=== PATIENT | male | born 1945 | race Caucasian/White ===

== ENCOUNTER 2016-06-16 07:44 | Inpatient (IN) | payer MEDICARE, BC ==
[~2016-06-16 07:44] MED LIST: BUDESONIDE 0.5 MG/2 ML VIAL.NEB IH ONE; IPRATROPIUM BROMIDE 0.5 MG/2.5 ML VIAL.NEB IH ONE; MORPHINE SULFATE 15 MG TABLET.SA PO PRN; ROPIVACAINE HCL/PF 100 MG, KETOROLAC TROMETHAMINE 30 MG, EPINEPHrine 0.2 MG in NORMAL S... IJ PRN; ceFAZolin SODIUM 1 GM VIAL IV PRN
--- OUTSIDE RECORDS SUMMARY | 2016-06-16 07:49 | XMS REPORT | Continuity of Care Document ---
:1945 Author Organization [facility] ([facility]) Address [address] [place] [address] Phone [phone] Care Team Providers Name Role Phone Provider, No-Primary Care Primary Care Provider Unavailable Source Comments This disclosure is being made pursuant to the Care Everywhere program, applicable federal and state laws, and may not contain all informaitonavailable regarding this patient.[facility] ([facility]) Active Allergies and Adverse Reactions Not on File Current Medications Not on file Active Problems Not on file Social History Tobacco Use Types Packs/Day Years Used Date Never Assessed Plan of Care Health Maintenance Due Date Last Done Comments HCV Screening 1945 Hepatitis B Vaccine (1 of 3 - Primary Series) 1945 Tdap Vaccine 1958 Lipid Disorder Screening 1965 Td Vaccine 1965 Colonoscopy 02/21/1997 Prostate Cancer Screening 1997 Zoster Vaccine 2007 Pneumococcal Vaccine (1 of 2 - PCV13) 02/23/2012 Influenza Vaccine: Seasonal (#1) 09/24/2015 Results from Last 3 Months Not on file
[2016-06-16] MEDS: RINGERS SOLUTION,LACTATED 1,000 ML IV PRN ×2 (08:10→19:32)
[2016-06-16] MEDS ORDERED: RINGERS SOLUTION,LACTATED 850 ML IV ONE (10:20)
[2016-06-16] MEDS ORDERED: RINGERS SOLUTION,LACTATED 1,000 ML IV ONE (11:15)
[2016-06-16] MEDS ORDERED: PROMETHAZINE HCL 5 MG in DEXTROSE 5 % IN WATER 50 ML IV PRN ×2 (11:47)
[2016-06-16] MEDS ORDERED: MAGNESIUM HYDROXIDE 30 ML UDC PO PRN (11:47)
[2016-06-16] MEDS ORDERED: ONDANSETRON HCL/PF 2 MG/ML VIAL IV PRN (11:47)
[2016-06-16] MEDS ORDERED: HYDROmorphone HCL 1 MG/ML DISP.SYRIN IV PRN (11:47)
[2016-06-16] MEDS ORDERED: ACETAMINOPHEN 500 MG TABLET PO PRN (11:47)
[2016-06-16] MEDS ORDERED: ZOLPIDEM TARTRATE 5 MG TABLET PO PRN (11:47)
[2016-06-16] MEDS ORDERED: diphenhydrAMINE HCL 50 MG/ML VIAL IV PRN (11:47)
[2016-06-16] MEDS ORDERED: oxyCODONE HCL/ACETAMINOPHEN 1 TAB TABLET PO PRN (11:47)
[2016-06-16] MEDS ORDERED: DEXTROSE 5%-LACTATED RINGERS 1,000 ML IV PRN (11:47)
[2016-06-16] MEDS ORDERED: MAG HYDROX/ALUMINUM HYD/SIMETH 30 ML UDC PO PRN (11:47)
[2016-06-16] MEDS ORDERED: LOPERAMIDE HCL 2 MG CAPSULE PO PRN (11:49)
[2016-06-16] MEDS: KETOROLAC TROMETHAMINE 15 MG/ML VIAL IV SCH ×2 (13:50→19:29)
[2016-06-16] MEDS: ceFAZolin SODIUM 1 GM in DEXTROSE 5 % IN WATER 100 ML IV SCH ×4 (13:50→19:29)
[2016-06-16] MEDS ORDERED: SENNOSIDES/DOCUSATE SODIUM 1 TAB TABLET PO SCH (21:00)
[2016-06-16] MEDS ORDERED: ASPIRIN 325 MG TABLET.DR PO SCH (21:00)
[2016-06-17] MEDS: ceFAZolin SODIUM 1 GM in DEXTROSE 5 % IN WATER 100 ML IV SCH ×2 (01:53)
[2016-06-17] MEDS: KETOROLAC TROMETHAMINE 15 MG/ML VIAL IV SCH ×2 (01:54→07:14)
[2016-06-17 03:58] VITALS: BP 133/76
[2016-06-17 06:02] LABS: Hematocrit 38.1 % (42.0-52.0); Hemoglobin 13.1 gm/dL (13.5-18.0); Mean Cell Volume 94.1 fl (78-100); Mean Corpuscular Hemoglobin 32.3 pg (27-31); Mean Corpuscular Hgb Conc 34.4 g/dl (32-36); Mean Platelet Volume 9.1 fl (6.0-9.5); Platelet Count 145 K/mm3 (150-450); Red Blood Count 4.05 M/mm3 (4.7-6.0); Red Cell Distribution Width 11.7 % (11.5-14.0); White Blood Count 7.5 K/mm3 (4.0-10.5)
[2016-06-17 06:29] LABS: Anion Gap 10.1 mmol/L (6.8-13.8); Calcium * 8.5 mg/dL (7.9-10.9); Carbon Dioxide 29.2 mmol/L (24-32.6); Estimated Creat Clear 69.4; Potassium 4.3 mmol/L (3.4-4.6)
[2016-06-17] MEDS ORDERED: PANTOPRAZOLE SODIUM 20 MG TABLET.DR PO SCH (07:00)
--- NOTE | 2016-06-17 08:03 | DS ---
(1) S/P revision of total knee Problem: Acute Qualifiers: Laterality: right Qualified Code(s): Z96.651 - Presence of right artificial knee joint (2) GERD (gastroesophageal reflux disease) Problem: Chronic (3) Anxiety Problem: Chronic (4) Depression Problem: Chronic (5) Hypertension Problem: Chronic (6) Osteoarthritis Problem: Chronic Description of Stay: Mr. Lua was admitted to the floor after undergoing revision of polyethylene of right total knee arthroplasty. Tolerated this well. Was admitted to the floor postoperatively for 24 hours of IV antibiotics, pain control, medical comanagement, and occupational and physical therapy. OT and PT were consulted to assist with activities of daily living and ambulation. Was made weightbearing as tolerated with range of motion as tolerated. Pain was initially controlled with IV regimen. This was transitioned to oral once tolerating a by mouth intake. Was resumed on home diet and medications. Had a Smith catheter inserted and the operating room which was discontinued on postoperative day 1. Aspirin, SCD and DACIA hose were utilized for DVT prophylaxis. Vital signs remained stable to the hospital course. Labs were obtained which showed a final hemoglobin of 13.1 grams. BMP was reviewed and was stable. Physical examination throughout the hospital course showed an extremity that had sensation that was intact to light touch, palpable pulses, a benign wound, motor intact to the toes, ankle, and knee. Knee range of motion was approximately 0 degrees to 80 degrees. Once an oral pain regimen was tolerated and physical therapy goals were met, it was felt that they were stable for discharge to home. Instructions: Continue with weightbearing as tolerated and range of motion as tolerated. Okay to shower, if there is any drainage cover with dry gauze and tape. Change every 2-3 days as needed. Resume home diet. Report any fever over 101.5 Fahrenheit, uncontrolled pain, increased drainage, foul odor of drainage, new or increased calf pain or shortness of breath, or any other significant complaints. A 325mg dialy aspirin for DVT prophylaxis. Continue with DACIA hose on the operative extremity until instructed otherwise. No driving until instructed otherwise. Follow up in approximately 10-14 days. Procedures Performed: see notes below List Procedures: Revision of polyethelene right total knee arthroplasty Discharge Disposition: Home self care Disposition: Home self-care Condition: Good Discharge Activity: Activity as tolerated, Weight bearing Discharge Diet: General/regular food Referrals: Kitty Ernandez DO [Primary Care Provider] - Additional Patient Instructions (free text): Follow-up in the office with Dr. Gastelum on 07/01/16@9:45am. Prescriptions (Any new or edited meds): Sennosides/Docusate Sodium [Senokot-S] 2 tab PO HS #60 tablet oxyCODONE HCL/ACETAMINOPHEN [Percocet 5 MG/325 MG] 2 tab PO Q4H PRN #60 tablet PRN Reason: Moderate Pain Complete Home Medications List: Complete Home Medication List: Cetirizine HCl [Zyrtec] 10 mg PO DAILY 10/31/15 Loperamide HCl [Imodium] 2 mg PO PRN PRN 10/31/15 Naproxen Sodium [Aleve] 220 - 440 mg PO BID PRN 10/31/15 Omeprazole [Prilosec] 20 mg PO DAILY 10/31/15 Sertraline HCl [Zoloft] 100 mg PO DAILY 10/31/15 Lisinopril [Zestril] 30 mg PO DAILY 06/09/16 Rosuvastatin Calcium [Crestor] 20 mg PO DAILY 06/09/16 Aspirin [Aspirin Enteric Coated] 325 mg PO BID tablet. 06/17/16 Sennosides/Docusate Sodium [Senokot-S] 2 tab PO HS #60 tablet 06/17/16 oxyCODONE HCL/ACETAMINOPHEN [Percocet 5 MG/325 MG] 2 tab PO Q4H PRN #60 tablet 06/17/16
[2016-06-17] MEDS ORDERED: ROSUVASTATIN CALCIUM 10 MG TABLET PO SCH (09:00)
[2016-06-17] MEDS ORDERED: LISINOPRIL 10 MG TABLET PO SCH (09:00)
[2016-06-17] MEDS ORDERED: LORATADINE 10 MG TABLET PO SCH (09:00)
[2016-06-17] MEDS ORDERED: SERTRALINE HCL 100 MG TABLET PO SCH (09:00)
== END 2016-06-17 10:10 | disposition home or self-care (01) | DRG 489 ==
LOC: MS 07:44
PROVIDERS: ADMIT Orthopaedic Surgery; ATTEND Orthopaedic Surgery
PROC: 0SUV09Z Supplement Right Knee Joint, Tibial Surface with Liner, Open Approach (ICD-10-PCS; 2016-06-16)
PROC: 0SPC09Z Removal of Liner from Right Knee Joint, Open Approach (ICD-10-PCS; principal; 2016-06-16 11:30)
DX: T84.022A Instability of internal right knee prosthesis, initial encounter (principal); I10 Essential (primary) hypertension; E78.5 Hyperlipidemia, unspecified; K21.9 Gastro-esophageal reflux disease without esophagitis

== ENCOUNTER 2018-12-20 06:12 | Inpatient (IN) ==
[~2018-12-20 06:12] MED LIST changes: -BUDESONIDE 0.5 MG/2 ML VIAL.NEB IH ONE; -IPRATROPIUM BROMIDE 0.5 MG/2.5 ML VIAL.NEB IH ONE; +ROPIVACAINE HCL/PF 100 MG, EPINEPHrine 0.2 MG, KETOROLAC TROMETHAMINE 30 MG in NORMAL S... IJ PRN; -ROPIVACAINE HCL/PF 100 MG, KETOROLAC TROMETHAMINE 30 MG, EPINEPHrine 0.2 MG in NORMAL S... IJ PRN; +TRANEXAMIC ACID 1,000 MG in NORMAL SALINE 100 ML IV PRN
[2018-12-20] MEDS ORDERED: ISOPROPYL ALCOHOL 480 APPL BTL MC ONE (06:28)
[2018-12-20] MEDS: RINGER'S SOLUTION,LACTATED 1,000 ML IV PRN ×2 (07:02→09:29)
--- NOTE | 2018-12-20 07:16 | ANES ---
Anesthesia Pre Procedure Eval Vitals/Labs: Last Vital Signs Temp 36.4 C 12/20/18 06:43 Pulse 77 12/20/18 06:43 Resp 16 12/20/18 06:43 BP 124/71 12/20/18 06:43 Pulse Ox 98 12/20/18 06:43 HOME MEDICATIONS lisinopril 40 mg tablet 40 mg PO DAILY 12/08/17 [Last Taken 12/20/18] omeprazole 20 mg capsule,delayed release 20 mg PO DAILY 12/08/17 [Last Taken 12/19/18] amlodipine 5 mg tablet 5 mg PO DAILY 03/25/18 [Last Taken 12/20/18] cetirizine 10 mg capsule 10 mg PO DAILY cap 03/25/18 [Last Taken 12/19/18] ropinirole 0.5 mg tablet 0.5 mg PO DAILY #81 tab 03/25/18 [Last Taken 12/19/18] rosuvastatin 20 mg tablet 20 mg PO DAILY 03/25/18 [Last Taken 12/19/18] temazepam 30 mg capsule 30 mg PO HS PRN #30 cap 11/09/18 [Last Taken 12/19/18] Allergies/Adverse Reactions: Allergies Allergy/AdvReac Type Severity Reaction Status Date / Time No Known Allergies Allergy Verified 12/20/18 06:40 - Planned Procedure Planned Procedure: Left Total Knee Arthroplasty Medication List Reviewed:: Yes Allergies Verified: Yes Medical History (Last Reviewed 12/20/18 @ 07:14 by Eduardo Grissom CRNA) Anxiety Onset Date: Unknown Depression Onset Date: Unknown GERD (gastroesophageal reflux disease) Onset Date: Unknown Hypertension Onset Date: Unknown Knee pain, bilateral Onset Date: Unknown Osteoarthritis Onset Date: Unknown Right ankle pain Onset Date: Unknown Shoulder pain, right Onset Date: Unknown Trigger finger of left hand Onset Date: 2015 long finger Surgical History (Last Reviewed 12/20/18 @ 07:14 by Eduardo Grissom CRNA) History of arthroplasty Onset Date: 06/16/16 Dr. Lee: right knee, revision of polyethylene right total knee arthroplasty with revisino of skin incisino approx 20cm by Dr. dumont- 04/18/14, 06/16/16 History of colonoscopy Onset Date: 2010 polyps removed- 2009-12 History of tonsillectomy Onset Date: 1952 Status post trigger finger release Onset Date: 11/09/15 left long Family History (Last Reviewed 12/20/18 @ 07:14 by Eduardo Grissom CRNA) Brother Myocardial infarction Brother Myocardial infarction Blood disorder Father CVA (cerebral vascular accident) Mother Cancer - Family Anesthesia History Family History:: no untoward family reactions to anesthesia, no familial bleeding tendencies, no family history of clotting disorders, no family history of premature - Airway/Neck/Teeth Within Normal Limits:: Yes Teeth Condition: missing Denture Type: Perm crown/bridge Mallampatti Score: 2 Thyromental (T-M) distance: > 6 cm Mandibulo Hyoid distance: > 3 cm - Respiratory Respiratory Physical: lungs clear Smoking Status: Never smoker Discussed smoking cessation including day of surgery: No Sleep Apnea currently treated: No Sleep Apnea by current assessment: No Discussed Risks/Treatment of JADEN: No - Cardiovascular Tolerate Activity: Good Heart Sounds: S1 & S2, Regular - Anesthesia Assessment and Plan ASA Class: PS, II Anesthesia Type Plan: MAC, Spinal - Left ultrasound guided adductor canal nerve block for postop analgesia
[2018-12-20] MEDS ORDERED: fentaNYL CITRATE/PF 50 MCG/ML AMPUL ONE (07:20)
[2018-12-20] MEDS ORDERED: PROPOFOL VIAL IV ONE (07:20)
[2018-12-20] MEDS ORDERED: NALOXONE HCL 0.4 MG/ML VIAL ONE (07:20)
[2018-12-20] MEDS ORDERED: LIDOCAINE HCL 20 ML VIAL ONE (07:20)
[2018-12-20] MEDS ORDERED: BUPIVACAINE HCL/EPINEPHRINE 50 ML VIAL ONE (07:21)
[2018-12-20] MEDS ORDERED: ceFAZolin SODIUM 1 GM VIAL ONE (07:45)
[2018-12-20] MEDS ORDERED: ZOLPIDEM TARTRATE 5 MG TABLET PO PRN (09:50)
[2018-12-20] MEDS ORDERED: ONDANSETRON HCL/PF 2 MG/ML VIAL IV PRN (09:50)
[2018-12-20] MEDS ORDERED: MORPHINE SULFATE 2 MG/ML DISP.SYRIN IV PRN (09:50)
[2018-12-20] MEDS ORDERED: MAGNESIUM HYDROXIDE 30 ML UDC PO PRN (09:50)
[2018-12-20] MEDS ORDERED: DEXTROSE 5%-LACTATED RINGERS 1,000 ML IV PRN (09:50)
[2018-12-20] MEDS ORDERED: MAG HYDROX/ALUMINUM HYD/SIMETH 30 ML UDC PO PRN (09:50)
[2018-12-20] MEDS ORDERED: ACETAMINOPHEN 500 MG TABLET PO PRN (09:50)
[2018-12-20] MEDS ORDERED: diphenhydrAMINE HCL 50 MG/ML VIAL IV PRN (09:50)
[2018-12-20] MEDS ORDERED: TEMAZEPAM 15 MG CAPSULE PO PRN (09:55)
--- NOTE | 2018-12-20 09:58 | OR ---
Operative Report - Dictated Report Narrative: Date: 12/20/2018 Preoperative diagnosis: left knee degenerative joint disease. Postoperative diagnosis: Left knee degenerative joint disease. Procedure: Left total knee arthroplasty. Surgeon: Ap Gastelum M.D. Telecommunications Line Mechanic: Akash Duarte PA-C (provided and essential set of skilled, educated hands that assisted with transfer, positioning, prepping, draping, manipulation, retraction, placement of jigs, injection, insertion of implants, irrigation, closure wounds, and dressings all of which could not be performed by the available surgical crew) Anesthesia: Spinal with regional block and local periarticular joint injection. Complications: None Specimens: Bone. Estimated blood loss: Minimal. Tourniquet time: 98 Minutes at 325 millimeters of mercury. Retained implants: Depuy Attune size 8 left lugged cemented posterior stabilized femoral component. Size 8 fixed-bearing cemented tibial platform. 8 by 8 millimeter posterior stabilized cross-linked tibial insert. 41 millimeter medialized patella button. Indications: Mr. Lua is a 73-year-old gentleman who has had long-standing left knee pain and arthrosis. This patient was followed in my clinic for period of time with significant complaints of left knee pain consistent with arthritic changes. He had failed conservative measures including, but not limited to, activity modification, passage of time, medications, and other conservative measures. Patient wished to proceed with surgical treatment. The risks, benefits, and alternatives were discussed in clinic. The risks of , blood clots, bleeding, infection, nerve/tendon blood vessel/ injury, malposition of components, intraoperative fracture, postoperative limited range of motion, persistent pain, failure of components, and need for additional procedures. Patient wished to proceed consent was obtained after answering all questions. Procedure: After marking the correct extremity on the floor, the patient was taken to the operating room. A timeout was performed. IV antibiotics consisting of Ancef were administered prior to the procedure. A regional followed by spinal anesthetic was induced by anesthesia, per my request, on the operative table with all bony prominences well-padded. Smith catheter was placed, and a bump was placed under the operative side buttock. SCDs and DACIA hose were utilized on the nonoperative leg. A well-padded tourniquet was applied to the operative thigh. The operative leg was then pre-scrubbed with alcohol, prepped, and draped in a standard sterile fashion. After exsanguinating the extremity with an Esmarch bandage, the tourniquet was inflated. After marking out the anterior knee for standard incision centered over the patella, the skin was incised and dissected down to the joint retinaculum. The joint retinaculum was marked out as well as the horizontal axis of the patella, and a standard medial parapatellar arthrotomy was then made. The most proximal aspect of the quadriceps tendon and the patella tendon insertion were protected from release. A partial synovectomy was performed as well as a resection of the infrapatellar fat pad. The distal femoral fat pad proximal to the trochlea was also resected using cautery. The soft tissues were elevated off the medial aspe ct of the proximal tibia using a Hassan elevator ensuring that we did not transect the medial collateral ligament. Upon initial evaluation range of motion was approximately 0 degrees to 130 degrees of flexion. There were signs of advanced arthrosis in the medial, lateral, and patellofemoral joint spaces. There were large marginal osteophytes which were removed with a rongeur. The knee was hyperflexed and the patella was tucked laterally. Protecting the surrounding soft tissues with Homans, an entry drill was placed down the femoral canal using Whitesides line for guidance into the entry point. The intramedullary femoral alignment gabby was utilized in order to cut the distal femur in 5 degrees of valgus resecting 10 millimeters of bone. Next the distal femur was sized to a size 8. A posterior referencing guide was utilized to place the distal femoral cutting block in 3 degrees of external rotation. This was pinned into place. The rotation was confirmed both visually and based on anatomic landmarks. The 4 in 1 cutting jig of the appropriate size was utilized in order to make all bony cuts. The angle wing was used to ensure no notching. Retractors were utilized in order to protect surrounding soft tissues. This cut did not result in any excessive notching. We then cut the box centered over the distal femur. This allowed for resection of the anterior and posterior cru ciate ligaments. I then turned my attention to the preparation of the tibia. Using an extra medullary tibial alignment gabby, 5 millimeters of bone was resected off the medial articular surface. This was made perpendicular to the mechanical axis of the joint with the alignment gabby centered over the ankle mortise. The alignment gabby was checked and was noted to be parallel to the mechanical axis, centered over the medial one third of the tibial tubercle, paralleling the anterior surface of the tibia. We then turned our attention to the remaining meniscus and soft tissues. These were removed while protecting the surrounding ligaments and soft tissues. The marginal osteophytes off the anterior, posterior, medial, lateral aspects of the femur and tibia were removed. The tibia was sized out to a size 8. Next the tibia was drilled and punched in an externally rotated position. Next the trial femur and a series of tibial inserts were utilized in order to allow for full extension and maximal flexion. It was found that a 8 millimeter insert gave the best range of motion and stability at multiple flexion points as well as at full extension there was less than 2 mm of gapping both medially and laterally. There is minimal anterior translation with the knee at 90 degrees of flexion and no signs of being able to dislocate the knee. The patella was then prepared. The initial thickness was 23 millimeters. This was reamed down to 13 millimeters parallel to the anterior surface of the patella. It was sized out to a size 41 medialized patella button. This was then drilled and trialed. Without any medial restraint the patella tracked appropriately and did not sublux or dislocate. At this point, it was felt these were the appropriate sized implants, and all trials were removed. The standard periarticular joint injection consisting of ropivacaine, Toradol, and epinephrine were injected into the periarticular joint tissues. The bony surfaces were thoroughly irrigated with a pulsatile-suction saline irrigation device. A bone plug from the prior resected anterior chamfer cut was placed into the drill hole at the distal femur. The bony surfaces were then dried in preparation for placement of the implants. The cement was vacuum mixed per the marine engine machinist apprentice's instructions. The cement was placed on the dry bony surfaces and posterior aspect of the implants. The implants were impacted into place, removing all extruded cement. At this point anesthesia administered tranexamic acid per protocol intravenously. The knee was placed in extension with axial loading with the trial insert while the cement cured. Once the cement cured, all remaining extruded cement was removed. The knee was placed through a range of motion with the trial insert to ensure appropriate range of motion and stability. Final range of motion was approximately 0 to 130 degrees. The knee was again thoroughly irrigated with pulsatile saline lavage. The final polyethylene insert was then impacted into place ensuring no retained soft tissues. The remaining periarticular joint injection was injected. A medium Hemovac drain was placed exiting superior laterally. The knee was then placed over a triangle and the arthrotomy was closed with interrupted #1 Vicryl after thoroughly irrigating the joint. The deep and subcutaneous tissues were closed with interrupted 0 and 3-0 Vicryl respectively. Skin was closed with a running subcutaneous 3-0 Monocryl and Prineo Dermabond dressing. 4 x 4's, Sof-Rol, and a full leg Janes wrap were applied. All sponge, needle, blade, and instrument counts were correct prior to closing the wounds. Postoperative condition: The patient was awoken and transferred to the postanesthesia care unit in stable condition. Plan is to be admitted to the inpatient medical/surgical floor postoperatively for 24 hours of IV antibiotics, physical therapy, occupational therapy, and medical comanagement. Patient will be weightbearing as tolerated with range of motion as tolerated. DVT prophylaxis will be with SCDs, DACIA hose, and pharmacological anticoagulation. Anticipated hospital stay is approximately 1-3 days.
--- NOTE | 2018-12-20 10:14 | ANES ---
Post Anesthesia Discharge - Transfer of Care Transfer of Care handoff given to nurse: Yes - Discharge from PACU Discharge from PACU when meets criteria: Yes - Discharge to ASU Discharge to ASU-no complications/pt stable: Yes
--- NOTE | 2018-12-20 10:15 | ANES ---
Anesthesia Procedure Note Procedure Note: ANESTHESIA PROCEDURE NOTE Date of Procedure: 12/20/2018. Time of procedure: 0740. Performed by: Eduardo Grissom CRNA Marriage And Family Social Worker: None. Preprocedure diagnosis: Left knee degenerative joint disease. Post procedure diagnosis: Same. Procedure: Left ultrasound guided adductor canal block for postoperative analgesia. Indications: The patient is a 73-year-old male, requesting left ultrasound- guided abductor canal block for postoperative analgesia related to left total knee arthroplasty. Findings: See below. Details of the procedure: The tissue over the intended target site was cleansed with ChloraPrepand draped in a sterile fashion. 2 ml Lidocaine 1 % was infiltrated to the skin and subcutaneous tissue at the intended target site. Under sterile technique and ultrasound guidance a 20-gauge block needle was inserted through the left sartorius muscle to the saphenous nerve just anterior and medial to the superficial femoral artery and vein. 15 mL's of 0.5% bupivacaine was injected after negative aspiration for blood. Needle tip and spread of local anesthetic surrounding the saphenous nerve was observed throughout the injection with real time ultrasound visualization. The needle was then removed intact. No complications were noted. The images were retained in the Hospital medical database. EBL: Minimal. Fluids: N/A. Specimen: N/A. Post procedure condition: The patient tolerated the procedure well. No complications were noted. Thank you for this consultation. Eduardo Grissom CRNA
[2018-12-20] MEDS: KETOROLAC TROMETHAMINE 15 MG/ML VIAL IV SCH ×3 (10:45→23:33)
[2018-12-20] MEDS: ceFAZolin SODIUM 1 GM in DEXTROSE 5 % IN WATER 100 ML IV SCH ×6 (10:50→23:34)
[2018-12-20] MEDS: oxyCODONE HCL/ACETAMINOPHEN 1 TAB TABLET PO PRN (11:14)
--- NOTE | 2018-12-20 12:34 | ANES ---
Post Anesthesia Assessment - Vital Signs Vitals: Last Vital Signs Temp 36.4 C 12/20/18 10:34 Pulse 89 12/20/18 10:34 Resp 16 12/20/18 10:34 BP 113/76 12/20/18 10:34 Pulse Ox 96 12/20/18 10:34 Airway Patency: Normal - Mental Status Level Of Consciousness: Awake - Pain Level Pain Score: 0 - N/V Assessment Nausea/Vomiting Presence: None Dehydration:: No
[2018-12-20] MEDS: MORPHINE SULFATE 15 MG TABLET.SA PO SCH (20:03)
[2018-12-20] MEDS: SENNOSIDES/DOCUSATE SODIUM 1 TAB TABLET PO SCH (20:04)
[2018-12-21] MEDS: oxyCODONE HCL/ACETAMINOPHEN 1 TAB TABLET PO PRN ×2 (01:39→09:33)
[2018-12-21 05:45] LABS: Hemoglobin 11.8 gm/dL (13.5-18.0); Mean Cell Volume 94.7 fl (78-100); Mean Corpuscular Hemoglobin 32.9 pg (27-31); Mean Corpuscular Hgb Conc 34.7 g/dl (32-36); Mean Platelet Volume 8.7 fl (8-11.3); Platelet Count 197 K/mm3 (150-450); Red Blood Count 3.59 M/mm3 (4.7-6.0); Red Cell Distribution Width 11.8 % (11.5-14.0); White Blood Count 8.3 K/mm3 (4.0-10.5)
[2018-12-21 05:55] LABS: Anion Gap 11.8 mmol/L (6.8-13.8); BUN/Creatinine Ratio 11.7 (9.0-21.6); Calcium * 8.2 mg/dL (7.9-10.9); Carbon Dioxide 27.2 mmol/L (24-32.6); Estimated Creat Clear 55.9
[2018-12-21] MEDS: KETOROLAC TROMETHAMINE 15 MG/ML VIAL IV SCH ×4 (05:59→22:25)
[2018-12-21] MEDS: PANTOPRAZOLE SODIUM 20 MG TABLET.DR PO SCH (06:28)
[2018-12-21] MEDS ORDERED: NORMAL SALINE 1,000 ML IV ONE (07:39)
[2018-12-21] MEDS: amLODIPine BESYLATE 5 MG TABLET PO SCH (08:00)
[2018-12-21] MEDS: LISINOPRIL 40 MG TABLET PO SCH (08:00)
[2018-12-21] MEDS: MORPHINE SULFATE 15 MG TABLET.SA PO SCH ×2 (08:00→22:26)
--- NOTE | 2018-12-21 08:07 | PN ---
Subjective - Date and Time Seen Date: 12/21/18 Time: 08:02 Subjective Narrative: Subjective: Reports difficulty sleeping. He had an episode this morning after walking with therapy of lightheadedness. Denies chest pain. He denies prior episodes like this. He states he was walking fine he was when he sat back down he noticed that he was getting lightheaded and diaphoretic. His states that the episode was very short-lived. He is sitting in the chair now alert and oriented. Was able to walk in the echols with therapy. Pain is well-controlled. Voiding without any complications. Tolerating by mouth intake. Denies any nausea or vomiting. Denies calf pain. Physical exam: Alert and oriented to person, place and time Left lower extremity: Palpable dorsalis pedis pulse. Sensation grossly intact to light touch. Dressings clean and dry. Able to flex and extend ankle and toes. No excessive drainage. Calf and thigh are soft and nontender. Assessment: Postop day 1 status post left total knee arthroplasty. Plan: Due to the need for pain control, post-operative limited mobility, protection of the surgical site and joint, monitoring of the wound, and the management of chronic medical conditions, he we will hold his requires continued inpatient care. MS Contin this morning as well as his blood pressure medications. He is receiving saline bolus. If symptoms continue further testing will be performed. Continue with physical and occupational therapy weightbearing as tolerated. Continue with anticoagulation. 24 hours postoperative prophylactic antibiotics. Pain control with goal to rely on oral medications. Continue bowel regimen. Will need 6 weeks with walker or assitive device to protect joint while ambulating during the recovery process. Discharge planning. Discontinue drain and Smith catheter. Objective - Vitals Vitals: Last Vital Signs Temp 37.0 C 12/21/18 06:43 Pulse 89 12/21/18 06:43 Resp 18 12/21/18 06:43 BP 94/50 12/21/18 06:43 Pulse Ox 95 12/21/18 06:43 - Abnormal Lab Findings Abnormal Lab Findings: Abnormal Lab Results 12/21/18 12/21/18 Range/Units 05:28 05:28 RBC 3.59 L (4.7-6.0) M/mm3 Hgb 11.8 L (13.5-18.0) gm/dL Hct 34.0 L (42.0-52.0) % MCH 32.9 H (27-31) pg Est GFR (Non-Af Amer) 54 L D (60-130) mL/min Random Glucose 117 H (70-110) mg/dL Cauti Physician Documentation - Urinary Catheter Management Urethral (Smith) Date of Insertion: 12/20/18 Time of Insertion: 08:10 Assessment/Plan - Problems/Diagnosis (1) Hypotension Problem: Acute Qualifiers: Hypotension type: idiopathic hypotension Qualified Code(s): I95.0 - Idiopathic hypotension (2) Status post total left knee replacement Problem: Acute (3) Acute blood loss anemia Problem: Acute (4) Anxiety Problem: Chronic (5) Depression Problem: Chronic (6) GERD (gastroesophageal reflux disease) Problem: Chronic (7) Hypertension Problem: Chronic (8) Osteoarthritis Problem: Chronic
[2018-12-21] MEDS: LORATADINE 10 MG TABLET PO SCH (08:19)
[2018-12-21] MEDS: ENOXAPARIN SODIUM 40 MG/0.4 ML SYRG SC SCH (08:19)
[2018-12-21] MEDS: ROSUVASTATIN CALCIUM 20 MG TABLET PO SCH (08:19)
[2018-12-21] MEDS: rOPINIRole HCL 0.5 MG TABLET PO SCH (08:19)
[2018-12-21] MEDS: SENNOSIDES/DOCUSATE SODIUM 1 TAB TABLET PO SCH (22:34)
[2018-12-22] MEDS: KETOROLAC TROMETHAMINE 15 MG/ML VIAL IV SCH (04:03)
[2018-12-22] MEDS: PANTOPRAZOLE SODIUM 20 MG TABLET.DR PO SCH (07:07)
--- NOTE | 2018-12-22 09:00 | DS ---
(1) Hypotension Problem: Resolved Qualifiers: Hypotension type: idiopathic hypotension Qualified Code(s): I95.0 - Idiopathic hypotension (2) Status post total left knee replacement Problem: Acute (3) Acute blood loss anemia Problem: Acute (4) Anxiety Problem: Chronic (5) Depression Problem: Chronic (6) GERD (gastroesophageal reflux disease) Problem: Chronic (7) Hypertension Problem: Chronic (8) Osteoarthritis Problem: Chronic Date of Discharge:: 12/22/18 Description of Stay: Mr. Lua was admitted to the floor after undergoing left total knee arthroplasty. Tolerated this well. Was admitted to the floor postoperatively for 24 hours of IV antibiotics, pain control, medical comanagement, and occupational and physical therapy. OT and PT were consulted to assist with activities of daily living and ambulation. Was made weightbearing as tolerated with range of motion as tolerated. Pain was initially controlled with IV regimen. This was transitioned to oral once tolerating a by mouth intake. Was resumed on home diet and medications. Had a Smith catheter inserted and the operating room which was discontinued on postoperative day 1. A drain was placed intraoperatively into the knee which was discontinued on postoperative day 1. Lovenox SCD and DACIA hose were utilized for DVT prophylaxis. Vital signs remained stable to the hospital course. Labs were obtained which showed a final hemoglobin of 11.8 grams. Pre-op hemoglobin was 14.5. The plan is to monitor this clinically. BMP was reviewed and was stable. He did have a near syncopal episode after getting up with therapy in the first morning. This resolved with IV fluids and did not recur nor did he have any stroke or cardiac type symptoms. Physical examination throughout the hospital course showed an extremity that had sensation that was intact to light touch, palpable pulses, a benign wound, motor intact to the toes, ankle, and knee. Knee range of motion was approximately 5 degrees to 60 degrees. Once an oral pain regimen was tolerated and physical therapy goals were met, it was felt that they were stable for discharge to home. Instructions: Continue with weightbearing as tolerated and range of motion as tolerated. It is okay to shower and get the wound wet as long as there is no drainage from the wound. Do not bathe or soak the wound. If there is any drainage from the wound keep the wound clean and dry and cover with dry gauze and tape. Change every 2- 3 days as needed if there is any drainage. Cover wound while showering if there is any drainage. Continue with physical therapy. Resume home diet. Report any fever over 101.5 Fahrenheit, uncontrolled pain, increased drainage, foul odor of drainage, new or increased calf pain or shortness of breath, or any other significant complaints. A 325mg dialy aspirin will be started after finishing anticoagulation if not allergic. Continue with DACIA hose on the operative extremity until instructed otherwise. No driving until instructed otherwise. Follow up in approximately 2-3 weeks. Procedures Performed: see notes below List Procedures: Left total knee arthroplasty Results and Findings: Lab Pending Results 12/21/18 05:28: WBC 8.3, RBC 3.59 L, Hgb 11.8 L, Hct 34.0 L, MCV 94.7, MCH 32.9 H, MCHC 34.7, RDW 11.8, Plt Count 197, MPV 8.7 12/21/18 05:28: Sodium 137, Plasma Sodium 137, Potassium 4.0, Chloride 102, Carbon Dioxide 27.2, Anion Gap 11.8, BUN 16, Creatinine 1.37, Est GFR (Non-Af Amer) 54 L D, BUN/Creatinine Ratio 11.7, Random Glucose 117 H, Calcium 8.2 Discharge Location: Home Disposition: Home self-care Condition: Good Discharge Activity: Activity as tolerated, Weight bearing Discharge Diet: General/regular food Referrals: Ap Gastelum MD [Staff Physician] - 01/11/19 9:30 am Problem Oriented Discharge Instructions to Patient/Family: Total Knee Rep lacement, Care After, [id number] Additional Patient Instructions (free text): Follow up Physical Therapy at [facility] rehab in [place] on December 23 at 11:00am Please fax face sheet and PT Order to fax # [phone]. Follow up with Dr. Gastelum in Orthopedic office on ThursdayJanuary 11 at 9:30am. Prescriptions (Any new or edited meds): oxyCODONE HCL/ACETAMINOPHEN [Percocet 5 MG/325 MG] 2 tab PO Q4H PRN #60 tablet PRN Reason: Moderate Pain (Pain Scale 4-6) Transmission [facility] [place] [place] Complete Home Medications List: Complete Home Medication List: lisinopril 40 mg tablet 40 mg PO DAILY 12/08/17 amlodipine 5 mg tablet 5 mg PO DAILY 03/25/18 cetirizine 10 mg capsule 10 mg PO DAILY cap 03/25/18 ropinirole 0.5 mg tablet 0.5 mg PO DAILY #81 tab 03/25/18 rosuvastatin 20 mg tablet 20 mg PO DAILY 03/25/18 temazepam 30 mg capsule 30 mg PO HS PRN #30 cap 11/09/18 Omeprazole 20 mg PO DAILY 12/20/18 Enoxaparin Sodium [Lovenox] 40 mg SC Q24H #7 disp.syrin 12/22/18 Sennosides/Docusate Sodium [Senokot-S] 2 tab PO HS #60 tab 12/22/18 oxyCODONE HCL/ACETAMINOPHEN [Percocet 5 MG/325 MG] 2 tab PO Q4H PRN #60 tab 12/22/18 Amb Orders for Discharge: PT Evaluation and Treatment* Facility: [facility], Location: Rehabilitation Services
[2018-12-22] MEDS: ENOXAPARIN SODIUM 40 MG/0.4 ML SYRG SC SCH (09:04)
[2018-12-22] MEDS: MORPHINE SULFATE 15 MG TABLET.SA PO SCH (09:05)
[2018-12-22] MEDS: ROSUVASTATIN CALCIUM 20 MG TABLET PO SCH (09:05)
[2018-12-22] MEDS: amLODIPine BESYLATE 5 MG TABLET PO SCH (09:05)
[2018-12-22] MEDS: LORATADINE 10 MG TABLET PO SCH (09:05)
[2018-12-22] MEDS: LISINOPRIL 40 MG TABLET PO SCH (09:06)
[2018-12-22] MEDS: rOPINIRole HCL 0.5 MG TABLET PO SCH (09:06)
[2018-12-22 09:28] VITALS: BP 112/65
== END 2018-12-22 10:25 | disposition home or self-care (01) | DRG 982 ==
LOC: MS 06:12 → SUR 06:12
PROVIDERS: ADMIT Orthopaedic Surgery; ATTEND Orthopaedic Surgery
DX: R73.03 Prediabetes; I10 Essential (primary) hypertension; D62 Acute posthemorrhagic anemia; G25.81 Restless legs syndrome; E78.5 Hyperlipidemia, unspecified; M17.12 Unilateral primary osteoarthritis, left knee; I95.0 Idiopathic hypotension; F41.8 Other specified anxiety disorders; K21.9 Gastro-esophageal reflux disease without esophagitis
CPT/HCPCS: 36415; 73560; 80048; 85027; 97110; 97116; 97161; 97165; 97535; G0378